=== PATIENT | female | born 1995 | race Caucasian/White ===

== ENCOUNTER 2023-01-29 14:48 | Emergency (ER) | payer OTHER, SELFPAY | END 2023-01-29 16:30 | disposition home or self-care (01) | LOC: MADERS 14:48 | DX: S06.0X0A Concussion without loss of consciousness, initial encounter (principal); W18.30XA Fall on same level, unspecified, initial encounter; Y92.39 Other specified sports and athletic area as the place of occurrence of the external cause | CPT/HCPCS: 70450 ==